=== PATIENT | female | born 1945 | race Caucasian/White ===

== ENCOUNTER 2019-01-20 05:22 | Day surgery (SDC) | payer MEDICARE, BC ==
[2019-01-20] MEDS: CEFAZOLIN 2 GM/50 ML (PMX) 50 ML IVPB (07:00)
[2019-01-20] MEDS: SOD CHLORIDE 0.9% 1,000 ML IV (07:05)
[2019-01-20] MEDS ORDERED: FENTAnyl 50 MCG/ML VIAL ×3 (07:27→09:31)
[2019-01-20] MEDS ORDERED: PROPOFOL 20 ML (07:27)
[2019-01-20] MEDS ORDERED: MIDAZOLAM 1 MG/ML 2 ML INJ (07:27)
[2019-01-20] MEDS ORDERED: LIDOCAINE 100 MG SYRINGE (07:27)
[2019-01-20] MEDS ORDERED: DEXAMETHASONE 4 MG/ML 5 ML INJ (07:30)
[2019-01-20] MEDS ORDERED: ONDANSETRON 4 MG INJ (07:30)
[2019-01-20] MEDS ORDERED: ROPIVACAINE 0.5 % 30 ML VIAL (07:31)
[2019-01-20] MEDS: POLYMYXIN/BACITRACIN 1L IRRIG IRR (08:43)
[2019-01-20] MEDS ORDERED: PHENYLephrine (100 MCG/ML) 10ML SYG (08:54)
[2019-01-20] MEDS ORDERED: DIPHENHYDRAMINE 50 MG INJ IV (09:30)
[2019-01-20] MEDS ORDERED: hydrALAzine 20 MG INJ IV (09:30)
[2019-01-20] MEDS ORDERED: KETOROLAC 30 MG INJ (09:32)
[2019-01-20] MEDS: FENTAnyl 50 MCG/ML VIAL IV ×3 (09:49→10:10)
[2019-01-20] MEDS: KETOROLAC 30 MG INJ IV (09:50)
[2019-01-20] MEDS: MEPERIDINE 25 MG INJ IV (10:11)
[2019-01-20] MEDS: ONDANSETRON 4 MG INJ IV (10:24)
[2019-01-20] MEDS: HYDROCODONE/APAP (5/325) TAB PO (11:33)
== END 2019-01-20 12:08 | disposition home or self-care (01) ==
LOC: SDS 05:22
DX: S82.61XD Displaced fracture of lateral malleolus of right fibula, subsequent encounter for closed fracture with routine healing (principal); X58.XXXD Exposure to other specified factors, subsequent encounter; E11.9 Type 2 diabetes mellitus without complications; I10 Essential (primary) hypertension; Z95.810 Presence of automatic (implantable) cardiac defibrillator; I48.91 Unspecified atrial fibrillation; Z79.01 Long term (current) use of anticoagulants; F17.200 Nicotine dependence, unspecified, uncomplicated
CPT/HCPCS: 27792; 73610-RT; 82962